=== PATIENT | male | born 1955 | race Caucasian/White ===

== ENCOUNTER → 2024-02-23 13:44 | Outpatient (CLI) | payer MEDICARE, OTHER, SELFPAY ==
--- NOTE | 2024-02-23 13:47 | DI.US.S_ITS ---
PROCEDURE: US RENAL COMPLETE INDICATIONS: HTN TECHNIQUE: Real-time scanning was performed of the kidneys and bladder, with image documentation. COMPARISON: None. FINDINGS: Kidneys: Kidneys are normal in size. Right kidney measures 12.2 cm long; left kidney measures 10.9 cm long. Right renal cortical thickness is 2.2 cm; left renal cortical thickness is 1.7 cm. Renal cortical echotexture is normal. No hydronephrosis or nephrolithiasis. No suspicious solid mass lesions. Bladder: Pre-void bladder volume is 473 mL. Post-void residual is 135 mL. Pre-void images demonstrate no intraluminal masses or stones. On pre-void images, neither ureteral jets are noted with color Doppler interrogation. (Of note, ureteral jets may not be detectable in up to 25% of cases due to insufficient differences in specific gravity between ureteral and bladder urine). Miscellaneous: No free pelvic fluid. IMPRESSION: 1. No hydronephrosis. 2. Large postvoid residual. Dictated by: Quynh Dial M.D. on 02/24/2024 at 12:10 Approved by: Quynh Dial M.D. on 02/24/2024 at 12:11
== END ==
PROVIDERS: PCP Nurse Practitioner Family; Referring Provider Internal Medicine; Visit Provider Internal Medicine
DX: I10 Essential (primary) hypertension (principal)
CPT/HCPCS: 76770

== ENCOUNTER → 2024-09-27 13:52 | Outpatient (CLI) | payer MEDICARE, OTHER, SELFPAY ==
--- NOTE | 2024-09-27 13:54 | DI.ECHO.S_ITS ---
[facility] : : [address] : : [place] : : [id number] : : Phone: [phone] Echocardiogram Report + + :Name: NADIA SHERWOOD Study Date: 09/27/2024 Height: 67 in : :Hospital ReadingLocation: Weight: 160 lb : : Gender: Male BSA: 1.8 m2 : :: 1955 Age: 69 yrs BP: 140/81 mmHg: :Reason For Study: MITRAL VALVE REGURGITATION : :Ordering Physician: COLLIN FINLEY Performed By: Harmony Villalpando : :Referring: COLLIN FINLEY : + + Interpretation Summary 1. Left ventricular contractility is normal. Estimated ejection fraction is greater than 60% with no segmental wall motion abnormalities. Mild asymmetrical septal hypertrophy without obstruction. Grade 1 diastolic dysfunction. 2. The right ventricular contractility is normal. 3. Left atrial enlargement noted. The right ventricle is also dilated. The right atrium and left ventricle are of normal size. 4. Mild to moderate mitral regurgitation. 5. Moderate tricuspid regurgitation with estimated pulmonary systolic artery pressures of 40 mmHg. 6. No obvious intracardiac shunts. 7. No obvious intracardiac masses nor thrombi. 7. No hemodynamically significant pericardial effusion. 8. Normal right-sided filling pressures. Conclusion: Normal biventricular systolic function with mild to moderate valvular insufficiencies. When compared with previous echocardiogram, there is a decline in the estimated pulmonary systolic artery pressures. Persistent right ventricular enlargement is noted. Procedure: A two-dimensional transthoracic echocardiogram with color flow and Doppler was performed. The study quality was technically adequate. Comparison is made with the echocardiogram of 08/25/2023. The patient was in sinus bradycardia with heart rates between 50-63 bpm during the exam. Left Ventricle: The left ventricle is normal in size. There is mild asymmetric left ventricular hypertrophy. The ejection fraction is estimated to be 55-60%. Right Ventricle: The right ventricle is moderately dilated. The right ventricular systolic function is normal. Atria: The left atrium is mildly dilated. Right atrial size is normal. There is no Doppler evidence for an interatrial shunt. Mitral Valve: The mitral valve leaflets appear mildly thickened, but open well. There is mild to moderate mitral regurgitation. Aortic Valve: The aortic valve is trileaflet. The aortic valve is slightly calcified. There is no aortic valve stenosis. No aortic regurgitation is present. Tricuspid Valve: The tricuspid valve leaflets are thin and pliable. There is moderate tricuspid regurgitation. The right ventricular systolic pressure is estimated to be at least 40 mmHg based on an estimated right atrial pressure of 8 mm Hg. Pulmonic Valve: The pulmonic valve leaflets are thin and pliable; valve motion is normal. There is mild pulmonic regurgitation. Great Vessels: The aortic root is normal size. The dimensions of the ascending aorta are normal. The IVC is of normal diameter and collapses less than 50% with a sniff. This suggests a right atrial pressure of 8 mm Hg. Pericardium/ Pleura There is no pericardial effusion. There is no pleural effusion. MMode/2D Measurements & Calculations LVIDd: 4.2 cm LVOT diam: 2.2 cm LVIDs: 2.9 cm Ao root diam: 3.4 cm FS: 31.1 % asc Aorta Diam: 3.6 cm EPSS: 0.31 cm Ao Arch Diam (Prox Trans): 2.7 cm IVSd: 1.1 cm LVPWd: 0.84 cm LV jensen. diameter/BSA (cm/m^2): 2.3 LV sys. diameter/BSA (cm/m^2): 1.6 LA A2 area: 24.4 cm2 RA long axis: 6.3 cm LA A4 area: 22.1 cm2 RA area: 20.1 cm2 LA length (vol): 5.8 cm RA vol: 54.1 ml LA vol: 79.5 ml RA : 29.4 ml/m2 LA vol index: 43.2 ml/m2 IVC diam: 2.0 cm RVD1 (basal): 4.9 cm RVD2 (mid): 3.5 cm TAPSE: 2.5 cm Doppler Measurements & Calculations Ao V2 max: 217.3 cm/sec LVOT Max Beau: 111.0 cm/sec Ao V2 mean: 146.3 cm/sec LV V1 max P.9 mmHg Ao max P.9 mmHg LV V1 VTI: 26.4 cm Ao mean P.7 mmHg ARTHUR(I,D): 2.2 cm2 Ao V2 VTI: 45.7 cm ARTHUR(V,D): 1.9 cm2 sev ratio: 0.58 ARTHUR indexed to BSA (cm^2/m^2): 1.2 MV E max beau: 82.8 cm/sec TR max beau: 280.9 cm/sec MV A max beau: 73.7 cm/sec TR max P.6 mmHg MV E/A: 1.1 PA V2 max: 101.4 cm/sec Med Peak E' Beau: 7.6 cm/sec PA V2 mean: 74.8 cm/sec E/E' med: 10.9 PA mean P.5 mmHg Lat Peak E' Beau: 12.9 cm/sec PA pr(Accel): 16.5 mmHg E/E' lat: 6.4 E/e' average: 8.7 MV dec time: 0.23 sec SV(LVOT): 99.8 ml Reading Physician:MARGA
== END ==
PROVIDERS: PCP Nurse Practitioner Family; Referring Provider Internal Medicine; Visit Provider Internal Medicine
DX: I08.1 Rheumatic disorders of both mitral and tricuspid valves (principal)
CPT/HCPCS: 93306